=== PATIENT | female | born 1960 | race Caucasian/White ===

== ENCOUNTER 2020-05-20 12:55 | Emergency (ER) | payer OTHER | END 2020-05-20 13:26 | disposition home or self-care (01) | LOC: ERS 12:55 | DX: F41.9 Anxiety disorder, unspecified (principal); I10 Essential (primary) hypertension; F17.210 Nicotine dependence, cigarettes, uncomplicated; Z79.899 Other long term (current) drug therapy | CPT/HCPCS: 99283 ==

== ENCOUNTER → 2022-05-02 | Outpatient (CLI) | payer OTHER | LOC: PET 08:00 | PROVIDERS: ATTEND Obstetrics & Gynecology Gynecologic Oncology | DX: C53.1 Malignant neoplasm of exocervix (principal) | CPT/HCPCS: 78815; A9552 ==

== ENCOUNTER 2022-08-29 08:00 | Outpatient (CLI) | payer OTHER | END 2022-08-29 08:01 | disposition home or self-care (01) | LOC: PET 08:00 | PROVIDERS: ATTEND Obstetrics & Gynecology Gynecologic Oncology | DX: C53.9 Malignant neoplasm of cervix uteri, unspecified (principal) | CPT/HCPCS: 78815; A9552 ==

== ENCOUNTER 2022-10-07 09:30 | Day surgery (SDC) | payer OTHER ==
[2022-10-03 12:51] VITALS: BMI 29.3
[2022-10-07] MEDS ORDERED: Midazolam HCl 2 mg/2 ml Vial ONE (12:48)
[2022-10-07] MEDS ORDERED: FENTANYL 50 MCG/ML 1 ML VIAL ONE (12:48)
[2022-10-07] MEDS ORDERED: CEFAZOLIN 2 GM VIAL ONE (12:49)
[2022-10-07] MEDS ORDERED: Sodium Chloride 0.9% 100 ML ONE (12:49)
[2022-10-07] MEDS ORDERED: Ondansetron PF 4 MG/2 ML Vial ONE (12:50)
[2022-10-07] MEDS ORDERED: PROPOFOL 200 MG/20 ML VIAL ONE (12:57)
[2022-10-07] MEDS ORDERED: Bupivacaine/Epinephrine 0.25% 30 ML VIAL ONE (12:59)
[2022-10-07] MEDS ORDERED: Lidocaine 2% PF 5 ML VIAL ONE (13:02)
== END 2022-10-07 14:48 | disposition home or self-care (01) ==
LOC: SDC 09:30
PROVIDERS: ATTEND Surgery
PROC: B5181ZA Fluoroscopy of Superior Vena Cava using Low Osmolar Contrast, Guidance (ICD-10-PCS; principal; 2022-10-07)
PROC: 02HV33Z Insertion of Infusion Device into Superior Vena Cava, Percutaneous Approach (ICD-10-PCS; principal; 2022-10-07)
PROC: 0JH63WZ Insertion of Totally Implantable Vascular Access Device into Chest Subcutaneous Tissue and Fascia, Percutaneous Approach (ICD-10-PCS; principal; 2022-10-07)
DX: C53.9 Malignant neoplasm of cervix uteri, unspecified (principal); I10 Essential (primary) hypertension; Z79.899 Other long term (current) drug therapy; Z87.891 Personal history of nicotine dependence
CPT/HCPCS: 71045; C1788; J1642; J2001; J2250; J2405; J2704; J3010; J3490

== ENCOUNTER 2023-03-28 08:00 | Outpatient (CLI) | payer OTHER | END 2023-03-28 08:01 | disposition home or self-care (01) | LOC: PET 08:00 | PROVIDERS: ATTEND Internal Medicine Hematology & Oncology | DX: C53.8 Malignant neoplasm of overlapping sites of cervix uteri (principal) | CPT/HCPCS: 78815; A9552 ==

== ENCOUNTER 2023-05-07 12:17 | Day surgery (SDC) | payer OTHER ==
[2023-05-05 14:55] VITALS: BMI 28.8
[2023-05-07] MEDS ORDERED: Lidocaine 1% (PF) 30 ML VIAL ONE (13:17)
[2023-05-07] MEDS ORDERED: Dexmedetomidine 200 MCG/2 ML VIAL ONE (13:55)
[2023-05-07] MEDS ORDERED: fentaNYL PF 100 MCG/2 ML SYRINGE ONE (13:55)
[2023-05-07] MEDS ORDERED: Sodium Chloride 0.9% 100 ML ONE (13:56)
[2023-05-07] MEDS ORDERED: CEFAZOLIN 2 GM VIAL ONE (13:56)
[2023-05-07] MEDS ORDERED: Ondansetron PF 4 MG/2 ML Vial ONE (14:10)
[2023-05-07] MEDS ORDERED: Glycopyrrolate 0.2 MG/ML 5 ML SYRINGE ONE (14:10)
[2023-05-07] MEDS ORDERED: PROPOFOL 200 MG/20 ML VIAL ONE (14:10)
[2023-05-07] MEDS ORDERED: Ondansetron HCl/PF 4 MG/2 ML Vial IVP PRN (14:43)
[2023-05-07] MEDS ORDERED: Promethazine HCl 25 MG/ML VIAL IM PRN (14:43)
== END 2023-05-07 16:12 | disposition home or self-care (01) ==
LOC: SDC 12:17
PROVIDERS: ATTEND Orthopaedic Surgery
PROC: 0SPF04Z Removal of Internal Fixation Device from Right Ankle Joint, Open Approach (ICD-10-PCS; principal; 2023-05-07)
DX: T84.84XA Pain due to internal orthopedic prosthetic devices, implants and grafts, initial encounter (principal); S82.851D Displaced trimalleolar fracture of right lower leg, subsequent encounter for closed fracture with routine healing; I10 Essential (primary) hypertension; Z87.891 Personal history of nicotine dependence; Z79.899 Other long term (current) drug therapy; Z90.710 Acquired absence of both cervix and uterus; Y79.2 Prosthetic and other implants, materials and accessory orthopedic devices associated with adverse incidents
CPT/HCPCS: J2001; J2405; J2704; J3490

== ENCOUNTER → 2023-12-03 | Outpatient (CLI) | payer MEDICARE, OTHER | LOC: PET 08:00 | PROVIDERS: ATTEND Internal Medicine Hematology & Oncology | DX: C53.8 Malignant neoplasm of overlapping sites of cervix uteri (principal) | CPT/HCPCS: 78815; A9552 ==

== ENCOUNTER 2024-04-23 13:14 | Emergency (ER) | payer MEDICARE, OTHER ==
[2024-04-23 14:10] LABS: #Basophils Less than 0.03 10x3/uL (0.0-0.2); %Basophils 0.2 % (0.0-1.0); %Eosinophils 0.4 % (0.0-10.0); %Lymphocytes 17.6 % (21.0-51.0); %Monocytes 2.8 % (0.0-10.0); %Neutrophils 78.7 % (42.0-75.0); Hematocrit 38.3 % (36.0-47.0); Hemoglobin 13.5 g/dL (12.0-16.0); Mean Corpuscular HGB CONC 35.2 g/dL (32.0-36.0); Mean Corpuscular Hemoglobin 32.3 pg (27.0-31.0); Mean Corpuscular Volume 91.6 fL (78.0-98.0); Mean Platelet Volume 9.8 fL (7.4-10.4); Platelet Count 307 10x3/uL (130-400); RBC Distribution Width 11.8 % (11.5-14.5); Red Blood Cell (RBC) Count 4.18 mill/uL (4.20-5.40)
[2024-04-23 14:32] LABS: ALT (SGPT) 18 U/L (8-55); AST (SGOT) 20 U/L (5-34); Albumin 3.5 g/dL (3.4-4.8); Alkaline Phosphatase 71 U/L (40-110); Anion Gap 14 mmol/L (10-20); BUN (Urea Nitrogen) 15 mg/dL (9.8-20.1); Calc. Creatinine Clearance 0 mL/min (70-130); Calcium 9.1 mg/dL (7.8-10.44); Carbon Dioxide 27 mmol/L (23-31); Chloride 100 mmol/L (98-107); Estimated GFR 73; Globulin 3.4 g/dL (2.4-3.5); Glucose 148 mg/dL (80-115); Protein, Total 6.9 g/dL (5.8-8.1); Sodium 138 mmol/L (136-145)
[2024-04-23 14:34] LABS: Troponin I 0.016 ng/mL (< 0.028)
[2024-04-23] MEDS ORDERED: Ondansetron PF 4 MG/2 ML Vial ONE (14:37)
[2024-04-23] MEDS ORDERED: Potassium Chloride 20 MEQ TAB ONE (16:30)
== END 2024-04-23 17:31 | disposition home or self-care (01) ==
LOC: ERS 13:14
DX: E86.0 Dehydration (principal); E87.6 Hypokalemia; R42 Dizziness and giddiness; I10 Essential (primary) hypertension; Z79.899 Other long term (current) drug therapy
CPT/HCPCS: 71045; 84484; 85379; 93005; 94760; 96374; 99284; J2405; 36415; 80053; 84443; 85025